=== PATIENT | female | born 1960 | race Caucasian/White ===

== ENCOUNTER 2017-03-16 10:10 | Emergency (ER) | payer OTHER ==
--- NOTE | ~2017-03-16 | CR230 ---
[facility] RADIOLOGY TEXT RESULTS PATIENT: STEFFI ZAVALA LOCATION: SED : 64 UNIT #: [id number] AGE: [address]: Cat Sims APRN SEX: F ORDER DR: [id number] [place] [id number] E MR#: [id number] #: [id number] NAME: STEFFI ZAVALA. : 1960 SEX: F STUDY DATE/TIME: 03/16/2017 11:03 UNIT: SED ROOM: STUDY DESCRIPTION: CR Shoulder Min 2 View Rt Attending Physician: Cat Sims A.P.R.N. Ordering Physician: Cat Sims A.P.R.N. Primary Care Physician: No Primary Care Physician MEDICAL IMAGING REPORT This report is preliminary unless electronic signature is present. EXAM 3 views of the right shoulder. DATE 03/16/2017 HISTORY 56-year-old female with right shoulder pain after falling last evening. Patient is unable to move arm. COMPARISON None FINDINGS No acute right shoulder fracture or dislocation is seen. No significant osteoarthritic changes are identified. Imaged right ribs appear intact. Imaged right lung appears clear. IMPRESSION Normal 3 views of the right shoulder. Dictated by... Casie Quintanilla M.D. THIS IS AN ELECTRONICALLY VERIFIED REPORT Casie Quintanilla M.D. at 03/17/2017 9:40 AM [facility]/slime TD: 03/16/2017 12:21 JOB #: [id number] [facility] RADIOLOGY TEXT RESULTS PATIENT: STEFFI ZAVALA LOCATION: SED : 64 UNIT #: [id number] AGE: [address]: Cat Sims APRN SEX: F ORDER DR: MEDICAL IMAGING REPORT Page 1 of 1
[~2017-03-16 10:10] MED LIST: AUGMENTIN PO; BACTRIM DS TABL1 TA1 PO; MIDRIN CAPSULE1 CAP PO; OTC ALLERGY MED PO; PREDNISONE PO; PREDNISONE10 MG PO
[2017-03-16] MEDS ORDERED: NO MEDICATIONS (10:27)
== END 2017-03-16 11:55 | disposition home or self-care (01) ==
LOC: SED 10:10
DX: S43.421A Sprain of right rotator cuff capsule, initial encounter (principal); F17.210 Nicotine dependence, cigarettes, uncomplicated; W01.0XXA Fall on same level from slipping, tripping and stumbling without subsequent striking against object, initial encounter; Y92.009 Unspecified place in unspecified non-institutional (private) residence as the place of occurrence of the external cause
CPT/HCPCS: 73030; 96372; 99283; J1885